=== PATIENT | female | born 1955 | race Caucasian/White ===

== ENCOUNTER → 2016-12-30 | Outpatient (CLI) | payer BC | LOC: CT 08:23 | DX: N26.1 Atrophy of kidney (terminal) (principal) | CPT/HCPCS: 36415; 82565; 84520; J7050; Q9962 ==

== ENCOUNTER → 2021-03-17 | Outpatient (CLI) | payer BC | LOC: CT 08:09 | DX: R10.0 Acute abdomen (principal); K76.0 Fatty (change of) liver, not elsewhere classified | CPT/HCPCS: 36415; 82565; Q9967 ==

== ENCOUNTER → 2022-03-23 | Outpatient (CLI) | payer MEDICARE | LOC: RAD 13:51 | DX: R06.09 Other forms of dyspnea (principal) | CPT/HCPCS: 71046 ==

== ENCOUNTER → 2022-06-24 | Outpatient (CLI) | payer MEDICARE | LOC: MAMO 09:00 | DX: Z12.31 Encounter for screening mammogram for malignant neoplasm of breast (principal) | CPT/HCPCS: 77063; 77067 ==